=== PATIENT | female | born 1995 | race Caucasian/White ===

== ENCOUNTER 2017-08-20 11:23 | Emergency (ER) | payer OTHER ==
[~2017-08-20] VITALS: Ht 157.5 cm; Wt 87.0 kg
[~2017-08-20 11:23] MED LIST: IBUP800T25 PO; PHEN177S43 MT
[2017-08-20 11:25] VITALS: Ht 157.5 cm; Wt 87.0 kg
[2017-08-20] MEDS ORDERED: KETOROLAC 30 MG INJ IV STA (12:56)
[2017-08-20] MEDS ORDERED: SOD CHLORIDE 0.9% 1,000 ML IV STA (12:56)
[2017-08-20] MEDS ORDERED: ONDANSETRON 4 MG INJ IV STA (12:56)
[2017-08-20 13:27] LABS: ADD UMIC NO; UR ASCORBIC ACID NEGATIVE (NEGATIVE); UR BILIRUBIN (Dip) NEGATIVE (NEGATIVE); UR BLOOD (Dip) NEGATIVE (NEGATIVE); UR CLARITY CLEAR (CLEAR); UR COLOR YELLOW (YELLOW); UR GLUCOSE (Dip) NEGATIVE (NEGATIVE); UR KETONES (Dip) NEGATIVE (NEGATIVE); UR LEUKOCYTE ESTERASE (Dip) NEGATIVE Leu/ul (NEGATIVE); UR NITRITE (Dip) NEGATIVE (NEGATIVE); UR SPECIFIC GRAVITY (Dip) 1.018 (1.003-1.030); UR TOTAL PROTEIN (Dip) NEGATIVE (NEGATIVE); UR UROBILINOGEN (Dip) NEGATIVE (NEGATIVE)
--- NOTE | 2017-08-20 13:32 | RADRPT ---
PROCEDURE: XR Right Forearm. CLINICAL INDICATION: Trauma due to a fall. Right forearm pain. TECHNIQUE: AP and lateral views of the right forearm were obtained. COMPARISON: No prior studies are available for comparison. FINDINGS: There is no fracture or dislocation. The soft tissues are normal. Articular surfaces are intact. There is no lytic or blastic lesion. There is no radiopaque foreign body. IMPRESSION: 1. Unremarkable images of the right forearm. RPTAT: QQ .Ahmet Dunham MD, MD Date Time Electronically viewed and signed by .Ahmet Dunham MD, on 08/20/2017 13:32 .R/
--- NOTE | 2017-08-20 13:32 | RADRPT ---
PROCEDURE: XR Right Humerus. CLINICAL INDICATION: Trauma due to a fall. Right arm pain. TECHNIQUE: AP and lateral views of the right humerus were performed. COMPARISON: None. FINDINGS: There is no fracture or dislocation. The soft tissues are normal. Articular surfaces are intact. There is no lytic or blastic lesion. There is no radiopaque foreign body. IMPRESSION: 1. Unremarkable images of the right humerus. RPTAT: QQ .Ahmet Dunham MD, MD Date Time Electronically viewed and signed by .Ahmet Dunham MD, on 08/20/2017 13:32 .R/
--- NOTE | 2017-08-20 13:54 | RADRPT ---
PROCEDURE: XR Foot. CLINICAL INDICATION: Foot pain after fall TECHNIQUE: Three views of the right foot are available for review. COMPARISON: None available FINDINGS: There is no acute osseous or articular abnormality. No evidence for fracture. Bone mineral density is preserved. The articular surfaces are smooth without evidence of marginal erosions. The soft tis sues are intact without evidence of calcifications. IMPRESSION: 1. No acute osseous abnormality. RPTAT: VV .Obinna Roper MD, Date Time Electronically viewed and signed by .Obinna Roper MD, MD on 08/20/2017 13:54 .d/
--- NOTE | 2017-08-20 14:06 | RADRPT ---
PROCEDURE: CT Abdomen and pelvis without contrast. CLINICAL INDICATION: Abdominal pain TECHNIQUE: CT scan of the abdomen and pelvis without contrast was performed on a multidetector hig h-resolution CT scan. . Coronal and sagittal reformatted images were obtained from the axial [facility] e images. Standard CT scan of the abdomen pelvis without contrast protocols were performed. The total exam CTDI equals 18.4 mGy and the total exam DLP equals 1106.15 mGy-cm. One or more of the following dose reduction techniques were used: - Automated exposure control. - Adjustment of the mA and/or kV according to patient size. Use of iterative reconstruction technique. COMPARISON: None. FINDINGS: The kidneys are normal in size without calcified renal calculi, hydronephrosis or intra renal masses bilaterally. The ureters are unremarkable. The urinary bladder is contracted but otherwise unremark able. The uterus is anteverted anteflexed but otherwise unremarkable. No adnexal masses. There is trace free fluid in the cul-de-sac without other abdominal free fluid. No evidence of intra -abdominal abscess, free air or lymphadenopathy. The appendix is unremarkable. The stomach, small bowel and large bowel are unremarkable. The liver spleen pancreas adrenal glands and gallbladder are unremarkable. No evidence of biliary du ctal dilation. Tiny fat containing umbilical hernia without herniated bowel or strangulation. Remainder of the [place] pelvic wall unremarkable. Lung bases are unremarkable. Aorta is unremarkable. Osseous structures are unremarkable. IMPRESSION: 1. No evidence of calcified urinary calculi or obstructive uropathy. 2. No evidence gastrointestinal disease. Unremarkable appendix. 3. Trace free fluid in the cul-de-sac. No intra-abdominal abscess free air or lymphadenopathy. 4. Tiny fat containing umbilical hernia without herniated bowel or strangulation. RPTAT:AAJJ Physician Luis Date Time Electronically viewed and signed by Physician Luis on 08/20/2017 14:05 /
[2017-08-20 14:42] LABS: ABNORMAL IP MESSAGE 1; BASOPHIL # 0.1 10^3/ul (0.0-0.1); BASOPHILS % 0.7 % (0.0-2.0); EOSINOPHILS # 0.2 10^3/ul (0.0-0.5); HEMATOCRIT 40.5 % (37.0-47.0); HEMOGLOBIN 13.3 g/dl (12.0-16.0); LYMPHOCYTES % 24.2 % (15.0-51.0); MEAN CORPUSCULAR HEMOGLOBIN 28.7 pg (29.0-33.0); MEAN CORPUSCULAR HGB CONC 32.8 g/dl (32.0-37.0); MEAN CORPUSCULAR VOLUME 87.5 fl (82.0-101.0); MEAN PLATELET VOLUME 13.1 fl (7.4-10.4); MONOCYTE # 0.6 10^3/ul (0.3-0.9); MONOCYTES % 6.8 % (0.0-11.0); NEUTROPHIL # 5.5 10^3/ul (1.6-7.5); NEUTROPHILS % 65.9 % (39.0-77.0); PLATELET COUNT 183 10^3/UL (140-415); RED BLOOD COUNT 4.63 10^6/ul (4.20-5.40); RED CELL DISTRIBUTION WIDTH 13.3 % (11.5-14.5); WHITE BLOOD COUNT 8.3 10^3/ul (4.8-10.8)
[2017-08-20 15:19] LABS: ALBUMIN 4.5 g/dl (3.3-4.9); ALBUMIN/GLOBULIN RATIO 1.21; BILIRUBIN,INDIRECT 0.4 mg/dl (0-1.1); BILIRUBIN,TOTAL 0.4 mg/dl (0.2-1.3); CALCIUM 9.8 mg/dl (8.4-10.2); CREATININE 0.75 mg/dl (0.44-1.00); POTASSIUM 3.7 mmol/L (3.5-5.1); TOTAL PROTEIN 8.2 g/dl (6.1-8.1)
[2017-08-20] MEDS ORDERED: BISM-34 PO (15:40)
--- NOTE | 2017-08-22 03:57 | ERD ---
ER Documentation Chief Complaint Date/Time DATE: 08/22/17 TIME: 03:53 Chief Complaint abdominal pain x 1 week, right arm pain s/p slip/fall this morning, no ko HPI This patient is a 21-year-old female presenting to the emergency department with complaints of generalized abdominal pain intermittently for the past week. Symptoms are associated with diarrhea. The diarrhea did begin yesterday. Pain is now worsening. She has had nausea but no vomiting. Last menstrual cycle was 07-30-2017. Additionally the patient states she did fall down a wall seated in a chair today injuring her right ankle, right foot, right forearm, and right humerus. She did not lose consciousness during the fall. She denies other symptoms or injuries currently. ROS All systems reviewed and are negative except as per history of present illness. Medications Home Meds Active Scripts Bismuth Subsalicylate* (Bismuth Subsalicylate*) 262 Mg/15 Ml Oral.susp, 15 ML PO Q6 Y for DIARRHEA, #1 BOTTLE Prov:BERNARDA YANES PA-C 08/20/17 Ibuprofen* (Motrin*) 800 Mg Tab, 800 MG PO Q6H Y for PAIN, #3 TAB Prov:DONY PALMER MD 05/25/16 Phenol* (Chloraseptic* Watson) 177 Ml Watson.pump, 2 SPRAY MT Q2H Y for SORE THROAT for 3 Days, #1 BOTTLE Prov:DONY PALMER MD 05/25/16 Allergies Allergies: Coded Allergies: No Known Allergy (Unverified , 05/25/16) PMhx/Soc Medical and Surgical Hx: pt denies Medical Hx, pt denies Surgical Hx Hx Alcohol Use: No Hx Substance Use: No Hx Tobacco Use: No Smoking Status: Never smoker Physical Exam Vitals Vital Signs Date Time Temp Pulse Resp B/P Pulse Ox O2 Delivery O2 Flow Rate FiO2 08/20/17 11:25 98.0 85 18 134/76 99 Physical Exam Const: Toxic, well-appearing female in no acute distress. Head: Atraumatic Eyes: Normal Conjunctiva ENT: Normal External Ears, Nose and Mouth. Neck: Full range of motion..~ No meningismus. Resp: Clear to auscultation bilaterally Cardio: Regular rate and rhythm, no murmurs Abd: Soft, generalized abdominal tenderness on palpation but no focal tenderness, no rebound tenderness or guarding, no McBurney's point tenderness, non distended. Normal bowel sounds Skin: No petechiae or rashes Back: No midline or flank tenderness Ext: Some mild ecchymosis noted to the right humerus, right forearm, right ankle, and right foot, full range of motion of all joints of the right upper and right lower extremity. No obvious deformities noted. Neur: Awake and alert Psych: Normal Mood and Affect Result Diagram: 08/20/17 1411 08/20/17 1411 Results 24 hrs Laboratory Tests Test 08/20/17 13:11 08/20/17 14:11 Urine Color YELLOW Urine Clarity CLEAR Urine pH 6.0 Urine Specific [place] 1.018 Urine Ketones NEGATIVEmg/dL Urine Nitrite NEGATIVEmg/dL Urine Bilirubin NEGATIVEmg/dL Urine Urobilinogen NEGATIVEmg/dL Urine Leukocyte Esterase NEGATIVELeu/ul Urine Hemoglobin NEGATIVEmg/dL Urine Glucose NEGATIVEmg/dL Urine Total Protein NEGATIVEmg/dl White Blood Count 8.310^3/ul Red Blood Count 4.6310^6/ul Hemoglobin 13.3g/dl Hematocrit 40.5% Mean Corpuscular Volume 87.5fl Mean Corpuscular Hemoglobin 28.7pg Mean Corpuscular Hemoglobin Concent 32.8g/dl Red Cell Distribution Width 13.3% Platelet Count 47155^3/UL Mean Platelet Volume 13.1fl Neutrophils % 65.9% Lymphocytes % 24.2% Monocytes % 6.8% Eosinophils % 2.0% Basophils % 0.7% Nucleated Red Blood Cells % 0.0/100WBC Neutrophils # 5.510^3/ul Lymphocytes # 2.010^3/ul Monocytes # 0.610^3/ul Eosinophils # 0.210^3/ul Basophils # 0.110^3/ul Nucleated Red Blood Cells # 0.010^3/ul Sodium Level 145mmol/L Potassium Level 3.7mmol/L Chloride Level 106mmol/L Carbon Dioxide Level 27mmol/L Anion Gap 16 Blood Urea Nitrogen 9mg/dl Creatinine 0.75mg/dl Glucose Level 78mg/dl Calcium Level 9.8mg/dl Total Bilirubin 0.4mg/dl Direct Bilirubin 0.00mg/dl Indirect Bilirubin 0.4mg/dl Aspartate Amino Transf (AST/SGOT) 26IU/L Alanine Aminotransferase (ALT/SGPT) 37IU/L Alkaline Phosphatase 85IU/L Total Protein 8.2g/dl Albumin 4.5g/dl Globulin 3.70g/dl Albumin/Globulin Ratio 1.21 Lipase 37U/L Current Medications Medications (Trade) Dose Ordered Sig/Veto Route PRN Reason Start Time Stop Time Status Last Admin Dose Admin Sodium Chloride (NS) 1,000 ml @ 1,000 mls/hr Q1H STAT IV 08/20/17 12:56 08/20/17 13:55 DC Ondansetron HCl (Zofran Inj) 4 mg ONCE STAT IV 08/20/17 12:56 08/20/17 12:58 DC 08/20/17 12:56 Ketorolac Tromethamine (Toradol) 30 mg ONCE STAT IV 08/20/17 12:56 08/20/17 12:58 DC 08/20/17 12:56 Procedures/[facility] She is a 21-year-old female presenting to the emergency department with complaints of abdominal pain and injury to her right upper extremity and right lower extremity. The patient was given Toradol and Zofran in the department. She was feeling improved prior to discharge. CBC showed no signs of leukocytosis or anemia. Chemistry panel was negative for acute findings. Urine was not concerning for urinary tract infection or proteinuria. PROCEDURE: CT Abdomen and pelvis without contrast. CLINICAL INDICATION: Abdominal pain TECHNIQUE: CT scan of the abdomen and pelvis without contrast was performed on a multidetector high-resolution CT scan. . Coronal and sagittal reformatted images were obtained from the axial source images. Standard CT scan of the abdomen pelvis without contrast protocols were performed. The total exam CTDI equals 18.4 mGy and the total exam DLP equals 1106.15 mGy- cm. One or more of the following dose reduction techniques were used: - Automated exposure control. - Adjustment of the mA and/or kV according to patient size. Use of iterative reconstruction technique. COMPARISON: None. FINDINGS: The kidneys are normal in size without calcified renal calculi, hydronephrosis or intra renal masses bilaterally. The ureters are unremarkable. The urinary bladder is contracted but otherwise unremarkable. The uterus is anteverted anteflexed but otherwise unremarkable. No adnexal masses. There is trace free fluid in the cul-de-sac without other abdominal free fluid. No evidence of intra-abdominal abscess, free air or lymphadenopathy. The appendix is unremarkable. The stomach, small bowel and large bowel are unremarkable. The liver spleen pancreas adrenal glands and gallbladder are unremarkable. No evidence of biliary ductal dilation. Tiny fat containing umbilical hernia without herniated bowel or strangulation. Remainder of the abdominal pelvic wall unremarkable. Lung bases are unremarkable. Aorta is unremarkable. Osseous structures are unremarkable. IMPRESSION: 1. No evidence of calcified urinary calculi or obstructive uropathy. 2. No evidence gastrointestinal disease. Unremarkable appendix. 3. Trace free fluid in the cul-de-sac. No intra-abdominal abscess free air or lymphadenopathy. 4. Tiny fat containing umbilical hernia without herniated bowel or strangulation. RPTAT:AAJJ Physician Luis Date Time Electronically viewed and signed by Alva Che Physician on 08/20/2017 14:05 PROCEDURE: XR Foot. CLINICAL INDICATION: Foot pain after fall TECHNIQUE: Three views of the right foot are available for review. COMPARISON: None available FINDINGS: There is no acute osseous or articular abnormality. No evidence for fracture. Bone mineral density is preserved. The articular surfaces are smooth without evidence of marginal erosions. The soft tissues are intact without evidence of calcifications. IMPRESSION: 1. No acute osseous abnormality. RPTAT: VV .Obinna Roper MD, MD Date Time Electronically viewed and signed by .Obinna Roper MD, MD on 08/20/2017 13:54 PROCEDURE: XR Right Forearm. CLINICAL INDICATION: Trauma due to a fall. Right forearm pain. TECHNIQUE: AP and lateral views of the right forearm were obtained. COMPARISON: No prior studies are available for comparison. FINDINGS: There is no fracture or dislocation. The soft tissues are normal. Articular surfaces are intact. There is no lytic or blastic lesion. There is no radiopaque foreign body. IMPRESSION: 1. Unremarkable images of the right forearm. RPTAT: QQ .Ahmet Dunham MD, MD Date Time Electronically viewed and signed by .Ahmet Dunham MD, MD on 08/20/2017 13:32 PROCEDURE: XR Right Humerus. CLINICAL INDICATION: Trauma due to a fall. Right arm pain. TECHNIQUE: AP and lateral views of the right humerus were performed. COMPARISON: None. FINDINGS: There is no fracture or dislocation. The soft tissues are normal. Articular surfaces are intact. There is no lytic or blastic lesion. There is no radiopaque foreign body. IMPRESSION: 1. Unremarkable images of the right humerus. RPTAT: QQ .Ahmet Dunham MD, MD Date Time Electronically viewed and signed by .Ahmet Dunham MD, MD on 08/20/2017 13:32 After workup in the department the patient was stable for discharge. Her diagnoses were diarrhea and abdominal pain of unclear etiology. She was given a prescription for bismuth subsalicylate for diarrhea. She is to have close follow-up with her primary care physician and return immediately for any new or worsening symptoms. Low suspicion for life-threatening illness at time of discharge. Departure Diagnosis: Primary Impression: Diarrhea Diarrhea type: unspecified type Qualified Code: R19.7 - Diarrhea, unspecified type Additional Impression: Abdominal pain Abdominal location: unspecified location Qualified Code: R10.9 - Abdominal pain, unspecified abdominal location Condition: Fair Patient Instructions: Abdominal Pain, Treating Diarrhea Referrals: [facility] YOU HAVE RECEIVED A MEDICAL SCREENING EXAM AND THE RESULTS INDICATE THAT YOU DO NOT HAVE A CONDITION THAT REQUIRES URGENT TREATMENT IN THE EMERGENCY DEPARTMENT. FURTHER EVALUATION AND TREATMENT OF YOUR CONDITION CAN WAIT UNTIL YOU ARE SEEN IN YOUR DOCTORS OFFICE WITHIN THE NEXT 1-2 DAYS. IT IS YOUR RESPONSIBILITY TO MAKE AN APPOINTMENT FOR FOLOW-UP CARE. IF YOU HAVE A PRIMARY DOCTOR --you should call your primary doctor and schedule an appointment IF YOU DO NOT HAVE A PRIMARY DOCTOR YOU CAN CALL OUR PHYSICIAN REFERRAL HOTLINE AT IF YOU CAN NOT AFFORD TO SEE A PHYSICIAN YOU CAN CHOSE FROM THE FOLLOWING [facility] CLIN[facility] [address] [facility] [address] [facility] [address] [facility] [address] [facility] [address] [facility] [facility] [address] [place] Additional Instructions: Follow up with your PCP within the next 1-3 days for a repeat evaluation. If you require a referral to a specialist, your Primary Care Provider may be able to provide this for you. In most patient cases, a referral is not required. If you have further questions regarding this matter, please ask your Primary Care Provider. Return the the emergency department immediately if symptoms worsen or change. If you have any questions regarding medications, ask your pharmacist or us before you leave. If any adverse reactions, occur while taking your medications, discontinue the treatment and return to the emergency department immediately. If any new or worsening symptoms, uncontrolled fevers, or other unexplained symptoms occur, return to the emergency department immediately. Take your medications as directed, and complete the entire course of treatment. BERNARDA YANES PA-C Aug 22, 2017 03:57
== END 2017-08-20 15:45 | disposition home or self-care (01) ==
LOC: FTE 11:23
DX: R10.84 Generalized abdominal pain (principal); R19.7 Diarrhea, unspecified; R11.0 Nausea
CPT/HCPCS: 36415; 73060; 73090; 73630; 74176; 80053; 81003; 83690; 85025; 96374; 96375; J1885; J2405; J7030; Z7502